=== PATIENT | male | born 1955 | race Caucasian/White ===

== ENCOUNTER 2016-12-07 23:26 | Emergency (ER) | payer OTHER ==
[~2016-12-07] VITALS: Ht 185.4 cm; Wt 96.8 kg
[2016-12-08] MEDS ORDERED: KEFLEX500 MG PO (00:30)
[2016-12-08 00:34] VITALS: BP 147/87
== END 2016-12-08 00:34 | disposition home or self-care (01) ==
LOC: EME 23:26
PROC: 0HQFXZZ Repair Right Hand Skin, External Approach (ICD-10-PCS; principal; 2016-12-08)
PROC: 2W3EX1Z Immobilization of Right Hand using Splint (ICD-10-PCS; 2016-12-08)
DX: S61.212A Laceration without foreign body of right middle finger without damage to nail, initial encounter (principal); S66.302A Unspecified injury of extensor muscle, fascia and tendon of right middle finger at wrist and hand level, initial encounter; W25.XXXA Contact with sharp glass, initial encounter; Z87.891 Personal history of nicotine dependence
CPT/HCPCS: 73140; 99281; 99284